=== PATIENT | male | born 1965 | race Caucasian/White ===

== ENCOUNTER 2017-02-13 08:56 | Day surgery (SDC) | payer BC ==
[~2017-02-13 08:56] MED LIST: MULTIVITAMINS1 EAC6 PO; NORVASC10 M2 PO; TYLENOL ARTHRI650 M1 PO; TYLENOL EXTRA500 M1 PO
[2017-02-13 09:29] LABS: BASO % 0.5 % (0-2); EOS % 1.7 % (0-7); EOSINOPHIL ABSOLUTE COUNT 0.1 tho/cmm (0.0-0.7); HCT-HEMATOCRIT 41.9 % (36.0-53.5); HGB-HEMOGLOBIN 14.3 gm/dl (13.5-17.0); IMMATURE GRANULOCYTES ABSOLUTE 0.01 tho/cmm (0-0.03); IMMATURE GRANULOCYTES PERCENT 0.2 % (0-0.3); LYMPH % 28.4 % (20-45); LYMPH ABSOLUTE COUNT 1.7 tho/cmm (0.8-4.5); MCH (MEAN CORPUSCULAR HGB) 32.8 pg (28.0-32.0); MCHC MEAN CORPUSCULAR HGB CONC 34.1 % (32.0-36.0); MCV (MEAN CELL VOLUME) 96.1 fl (82.0-96.0); MEAN PLATELET VOLUME 8.8 cmc (9.4-12.4); MONO % 6.8 % (0-12); MONOCYTE ABSOLUTE COUNT 0.4 tho/cmm (0.0-1.2); NEUTROPHIL ABSOLUTE COUNT 3.7 tho/cmm (1.6-8.0); NEUTROPHIL-AUTOMATED 3.7 tho/cmm (1.6-8.0); NEUTROPHILS % 62.4 % (40-80); PLATELET COUNT 233 tho/cmm (150-450); RED BLOOD COUNT 4.36 mil/cmm (4.40-5.70); RED CELL DISTRIBUTION WIDTH 12.6 % (12.4-16.4); WHITE BLOOD COUNT 5.9 tho/cmm (4.0-10.0)
[2017-02-13 09:34] LABS: INR 0.9 INR (0.9-1.1); PROTHROMBIN TIME 10.2 SECONDS (9.0-13.6)
[2017-02-13 09:48] LABS: ALKALINE PHOSPHATASE 68 U/L (33-138); ALT/SGPT 31 U/L (12-78); ANION GAP 10 mmol/L (0-20); AST/SGOT 14 U/L (10-40); BILIRUBIN,TOTAL 0.2 mg/dl (0.0-1.5); BLOOD UREA NITROGEN 21 mg/dl (6-24); CALCIUM 9.2 mg/dl (8.5-10.5); CARBON DIOXIDE-VENOUS 28 mmol/L (22-32); CHLORIDE 109 mmol/l (96-110); CREATININE 1.15 mg/dl (0.60-1.30); GLUCOSE 101 mg/dL (70-110); POTASSIUM 4.9 mmol/L (3.7-5.1); SODIUM 142 mmol/L (135-145); eGFR VALUE FOR BLACK 84 mL/Min
[2017-02-14 06:01] LABS: BASO % 0.1 % (0-2); HGB-HEMOGLOBIN 14.5 gm/dl (13.5-17.0); IMMATURE GRANULOCYTES ABSOLUTE 0.05 tho/cmm (0-0.03); IMMATURE GRANULOCYTES PERCENT 0.3 % (0-0.3); LYMPH % 10.8 % (20-45); LYMPH ABSOLUTE COUNT 1.6 tho/cmm (0.8-4.5); MCH (MEAN CORPUSCULAR HGB) 32.7 pg (28.0-32.0); MCHC MEAN CORPUSCULAR HGB CONC 34.5 % (32.0-36.0); MCV (MEAN CELL VOLUME) 94.6 fl (82.0-96.0); MONO % 8.8 % (0-12); MONOCYTE ABSOLUTE COUNT 1.3 tho/cmm (0.0-1.2); PLATELET COUNT 263 tho/cmm (150-450); RED BLOOD COUNT 4.44 mil/cmm (4.40-5.70); RED CELL DISTRIBUTION WIDTH 12.6 % (12.4-16.4)
[2017-02-14 10:01] LABS: ALBUMIN 3.8 g/dl (3.5-5.0); ALKALINE PHOSPHATASE 67 U/L (33-138); ALT/SGPT 29 U/L (12-78); AST/SGOT 16 U/L (10-40); BLOOD UREA NITROGEN 13 mg/dl (6-24); CARBON DIOXIDE-VENOUS 29 mmol/L (22-32); CHLORIDE 102 mmol/l (96-110); CREATININE 1.01 mg/dl (0.60-1.30); GLUCOSE 135 mg/dL (70-110); SODIUM 137 mmol/L (135-145); eGFR VALUE FOR BLACK >90 mL/Min
[2017-02-14 10:03] LABS: ANION GAP 10 mmol/L (0-20); BILIRUBIN,TOTAL 0.6 mg/dl (0.0-1.5); POTASSIUM 3.8 mmol/L (3.7-5.1)
[2017-02-14 10:49] LABS: AMYLASE 29 U/L (20-90); LIPASE 149 U/L (73-393)
[2017-02-14] MEDS ORDERED: PERCOCET 5-3251 EACH PO (14:13)
[2017-02-14] MEDS ORDERED: CIPRO500 M2 PO (14:17)
[2017-02-14] MEDS ORDERED: MEDROL4 M2 PO (14:22)
[2017-02-14] MEDS ORDERED: PRILOSEC OTC20 M1 PO (14:23)
[2017-02-14] MEDS ORDERED: KETOROLAC TROME10 MG PO (15:17)
[2017-03-14] MEDS ORDERED: VITAMIN C500 M3 PO (14:36)
[2017-04-03] MEDS ORDERED: COLACE100 M1 PO (12:32)
[2017-04-03] MEDS ORDERED: MOVANTIK25 MG PO (12:33)
[2017-04-03] MEDS ORDERED: MULTI VITAMIN1 EAC2 PO (12:33)
[2017-04-03] MEDS ORDERED: MIRALAX17 G2 PO (12:34)
== END 2017-02-15 10:50 ==
LOC: SHSB 08:56 → PACU 11:45 → SHSB 13:25 → CAR1 16:15
PROVIDERS: Nurse Practitioner Acute Care; Radiology Diagnostic Radiology
PROC: B4121ZZ Fluoroscopy of Hepatic Artery using Low Osmolar Contrast (ICD-10-PCS; principal; 2017-02-14)
PROC: 04L33ZZ Occlusion of Hepatic Artery, Percutaneous Approach (ICD-10-PCS; 2017-02-14)
DX: C78.7 Secondary malignant neoplasm of liver and intrahepatic bile duct (principal); C18.9 Malignant neoplasm of colon, unspecified; I10 Essential (primary) hypertension; M19.90 Unspecified osteoarthritis, unspecified site; G62.9 Polyneuropathy, unspecified; G89.18 Other acute postprocedural pain; Z79.899 Other long term (current) drug therapy; Z80.0 Family history of malignant neoplasm of digestive organs; Z98.890 Other specified postprocedural states
CPT/HCPCS: C1769; C1887; C2616; J1100; J1170; J1200; J1885; J1956; J2405; J3010; J7030; Q9967

== ENCOUNTER 2017-03-18 09:35 | Day surgery (SDC) | payer BC ==
[~2017-03-18 09:35] MED LIST changes: +CIPRO500 M2 PO; +KETOROLAC TROME10 MG PO; +MEDROL4 M2 PO; +PERCOCET 5-3251 EACH PO; +PRILOSEC OTC20 M1 PO; +VITAMIN C500 M3 PO
[2017-03-18 10:58] LABS: BASO % 0.2 % (0-2); EOS % 1.2 % (0-7); EOSINOPHIL ABSOLUTE COUNT 0.1 tho/cmm (0.0-0.7); HCT-HEMATOCRIT 38.6 % (36.0-53.5); IMMATURE GRANULOCYTES ABSOLUTE 0.02 tho/cmm (0-0.03); IMMATURE GRANULOCYTES PERCENT 0.4 % (0-0.3); LYMPH % 15.6 % (20-45); LYMPH ABSOLUTE COUNT 0.9 tho/cmm (0.8-4.5); MCH (MEAN CORPUSCULAR HGB) 31.3 pg (28.0-32.0); MCHC MEAN CORPUSCULAR HGB CONC 33.7 % (32.0-36.0); MEAN PLATELET VOLUME 9.1 cmc (9.4-12.4); MONO % 8.7 % (0-12); MONOCYTE ABSOLUTE COUNT 0.5 tho/cmm (0.0-1.2); NEUTROPHIL ABSOLUTE COUNT 4.2 tho/cmm (1.6-8.0); NEUTROPHIL-AUTOMATED 4.2 tho/cmm (1.6-8.0); NEUTROPHILS % 73.9 % (40-80); PLATELET COUNT 246 tho/cmm (150-450); PROTHROMBIN TIME 11.1 SECONDS (9.0-13.6); RED BLOOD COUNT 4.15 mil/cmm (4.40-5.70); RED CELL DISTRIBUTION WIDTH 12.9 % (12.4-16.4); WHITE BLOOD COUNT 5.6 tho/cmm (4.0-10.0)
[2017-03-18 11:09] LABS: ALB/GLOB RATIO 0.8 (0.8-2.0); ALBUMIN 3.4 g/dl (3.5-5.0); ALKALINE PHOSPHATASE 157 U/L (33-138); ALT/SGPT 78 U/L (12-78); ANION GAP 13 mmol/L (0-20); AST/SGOT 32 U/L (10-40); BILIRUBIN,TOTAL 0.4 mg/dl (0.0-1.5); BLOOD UREA NITROGEN 12 mg/dl (6-24); CARBON DIOXIDE-VENOUS 27 mmol/L (22-32); CHLORIDE 106 mmol/l (96-110); CREATININE 0.77 mg/dl (0.60-1.30); GLUCOSE 89 mg/dL (70-110); SODIUM 142 mmol/L (135-145); eGFR VALUE FOR BLACK >90 mL/Min
[2017-03-19 05:41] LABS: BASO % 0.1 % (0-2); HCT-HEMATOCRIT 40.6 % (36.0-53.5); HGB-HEMOGLOBIN 13.5 gm/dl (13.5-17.0); IMMATURE GRANULOCYTES ABSOLUTE 0.02 tho/cmm (0-0.03); IMMATURE GRANULOCYTES PERCENT 0.2 % (0-0.3); LYMPH % 6.6 % (20-45); LYMPH ABSOLUTE COUNT 0.7 tho/cmm (0.8-4.5); MCH (MEAN CORPUSCULAR HGB) 31.1 pg (28.0-32.0); MCHC MEAN CORPUSCULAR HGB CONC 33.3 % (32.0-36.0); MCV (MEAN CELL VOLUME) 93.5 fl (82.0-96.0); MEAN PLATELET VOLUME 9.1 cmc (9.4-12.4); MONO % 7.5 % (0-12); MONOCYTE ABSOLUTE COUNT 0.8 tho/cmm (0.0-1.2); NEUTROPHIL ABSOLUTE COUNT 9.3 tho/cmm (1.6-8.0); NEUTROPHIL-AUTOMATED 9.3 tho/cmm (1.6-8.0); NEUTROPHILS % 85.6 % (40-80); PLATELET COUNT 291 tho/cmm (150-450); RED BLOOD COUNT 4.34 mil/cmm (4.40-5.70); RED CELL DISTRIBUTION WIDTH 12.9 % (12.4-16.4)
[2017-03-19 05:48] LABS: ALB/GLOB RATIO 0.8 (0.8-2.0); ALBUMIN 3.3 g/dl (3.5-5.0); ALKALINE PHOSPHATASE 170 U/L (33-138); ALT/SGPT 108 U/L (12-78); ANION GAP 11 mmol/L (0-20); AST/SGOT 45 U/L (10-40); BILIRUBIN,TOTAL 0.5 mg/dl (0.0-1.5); BLOOD UREA NITROGEN 12 mg/dl (6-24); CALCIUM 9.1 mg/dl (8.5-10.5); CARBON DIOXIDE-VENOUS 28 mmol/L (22-32); CHLORIDE 105 mmol/l (96-110); CREATININE 0.88 mg/dl (0.60-1.30); POTASSIUM 4.2 mmol/L (3.7-5.1); SODIUM 140 mmol/L (135-145); eGFR VALUE FOR BLACK >90 mL/Min
[2017-03-19 05:49] LABS: WHITE BLOOD COUNT 10.9 tho/cmm (4.0-10.0)
[2017-03-19 05:59] LABS: GLUCOSE 145 mg/dL (70-110)
[2017-03-19] MEDS ORDERED: CIPRO500 M2 PO (20:53)
[2017-03-19] MEDS ORDERED: PROTONIX40 M2 PO (20:54)
[2017-03-19] MEDS ORDERED: MEDROL4 M1 (20:54)
[2017-03-19] MEDS ORDERED: PERCOCET 5-3251 EACH PO (20:55)
--- NOTE | 2017-03-19 22:07 | NUR ---
VIRTUAL CARE NOTE: DC TEACHING DONE. I COULD NOT FIND ANY [facility] OR [facility] INFORMATION REGARDING Y90 INSTRUCTIONS. CALLED RADIOLOGY WHO HAD THE ONCALL NURSE CALL ME. HER ONLY INSTRUCTION WAS TO LEAVE DRESSING ON FOR 24 MORE HOURS THEN OK TO LEAVE OPEN TO AIR AND CHEMO EXCRETION PRECAUTIONS. NOTIFIED PATIENT. PT DENIES ANY OTHER QUESTIONS/CONCERNS AT THIS TIME. ENCOURAGED TO CALL [facility] OR DR STALLWORTH FOR NEEDS AND TO FOLLOW UP WITH [facility] AND PCP THEY SEE FIT. PT SAID THEY WILL CALL THEM WITH AN UPDATE TOMORROW. COMPLETED DC INSTRUCTIONS IN CHART. FLOOR RN TO FINISH SIGNATURES AND DISMISS.
[2017-04-03] MEDS ORDERED: COLACE100 M1 PO (12:32)
[2017-04-03] MEDS ORDERED: MULTI VITAMIN1 EAC2 PO (12:33)
[2017-04-03] MEDS ORDERED: MOVANTIK25 MG PO (12:33)
[2017-04-03] MEDS ORDERED: MIRALAX17 G2 PO (12:34)
== END 2017-03-19 23:00 ==
LOC: RADSP 09:35 → SHSB 09:39 → 5WD 14:51
PROVIDERS: Radiology Diagnostic Radiology
PROC: 06L Lower Veins, Occlusion (ICD-10-PCS; principal; 2017-03-18)
DX: C78.7 Secondary malignant neoplasm of liver and intrahepatic bile duct (principal); C18.9 Malignant neoplasm of colon, unspecified; I10 Essential (primary) hypertension; Z98.890 Other specified postprocedural states; Z89.112 Acquired absence of left hand; Z79.899 Other long term (current) drug therapy; K21.9 Gastro-esophageal reflux disease without esophagitis
CPT/HCPCS: A9537; C1769; C1887; J1100; J1200; J1956; J2405; Q9967

== ENCOUNTER 2017-04-07 08:46 | Day surgery (SDC) | payer BC ==
[~2017-04-07 08:46] MED LIST changes: +COLACE100 M1 PO; +MEDROL4 M1; +MIRALAX17 G2 PO; +MOVANTIK25 MG PO; +MULTI VITAMIN1 EAC2 PO; +PROTONIX40 M2 PO
[2017-04-08 05:34] LABS: BASO % 0.1 % (0-2); EOS % 0.1 % (0-7); HCT-HEMATOCRIT 32.1 % (36.0-53.5); HGB-HEMOGLOBIN 10.7 gm/dl (13.5-17.0); IMMATURE GRANULOCYTES ABSOLUTE 0.02 tho/cmm (0-0.03); IMMATURE GRANULOCYTES PERCENT 0.2 % (0-0.3); LYMPH ABSOLUTE COUNT 0.8 tho/cmm (0.8-4.5); MCH (MEAN CORPUSCULAR HGB) 30.6 pg (28.0-32.0); MCHC MEAN CORPUSCULAR HGB CONC 33.3 % (32.0-36.0); MCV (MEAN CELL VOLUME) 91.7 fl (82.0-96.0); MEAN PLATELET VOLUME 8.7 cmc (9.4-12.4); MONOCYTE ABSOLUTE COUNT 0.9 tho/cmm (0.0-1.2); NEUTROPHIL ABSOLUTE COUNT 7.2 tho/cmm (1.6-8.0); NEUTROPHIL-AUTOMATED 7.2 tho/cmm (1.6-8.0); NEUTROPHILS % 80.6 % (40-80); PLATELET COUNT 209 tho/cmm (150-450); RED CELL DISTRIBUTION WIDTH 13.7 % (12.4-16.4); WHITE BLOOD COUNT 8.9 tho/cmm (4.0-10.0)
[2017-04-08 05:53] LABS: ALB/GLOB RATIO 0.9 (0.8-2.0); ALBUMIN 3.1 g/dl (3.5-5.0); BILIRUBIN,DIRECT 0.2 mg/dl (0.0-0.3); BILIRUBIN,INDIRECT 0.5 mg/dL (0.0-1.0); BILIRUBIN,TOTAL 0.7 mg/dl (0.0-1.5)
== END 2017-04-08 17:52 ==
LOC: SRG 08:46 → SHSC 08:47 → PACU 12:05 → SHSC 13:25 → CAR1 16:42
PROVIDERS: Surgery
PROC: 0FT44ZZ Resection of Gallbladder, Percutaneous Endoscopic Approach (ICD-10-PCS; principal; 2017-04-07)
DX: K81.2 Acute cholecystitis with chronic cholecystitis (principal); I10 Essential (primary) hypertension; Z79.899 Other long term (current) drug therapy; Z98.890 Other specified postprocedural states; Z87.891 Personal history of nicotine dependence
CPT/HCPCS: J0690; J1170; J2270; J2405; J7030